=== PATIENT | male | born 1945 | race Caucasian/White ===

== ENCOUNTER 2018-02-26 17:26 | Emergency (ER) | payer MEDICARE ==
[2018-02-26] MEDS ORDERED: Lidocaine 1% 20 ML MDV ONE (17:33)
[2018-02-26] MEDS ORDERED: Adacel (T-DAP) 0.5 ML VIAL ONE (17:39)
[2018-02-26] MEDS ORDERED: Cephalexin 500 MG CAP ONE (17:52)
[2018-02-26] MEDS ORDERED: Sulfameth/Trimethoprim DS 800-160mg TAB ONE (17:52)
[2018-02-26] MEDS ORDERED: Bacitracin Zinc 1 Packet ONE (17:55)
== END 2018-02-26 18:00 | disposition home or self-care (01) ==
LOC: BURERS 17:26
DX: S60.451A Superficial foreign body of left index finger, initial encounter (principal); I10 Essential (primary) hypertension; J45.909 Unspecified asthma, uncomplicated; W22.8XXA Striking against or struck by other objects, initial encounter
CPT/HCPCS: 90471; 90715; J2001